=== PATIENT | male | born 1945 | race Caucasian/White ===

== ENCOUNTER 2018-03-30 12:42 | Observation (INO) | payer OTHER ==
[~2018-03-30] VITALS: Ht 185.4 cm; Wt 94.4 kg
[2018-03-30] MEDS ORDERED: SODIUM CHLORIDE FLUSH 10ML SYR IVF ONE (13:30)
[2018-03-30 13:37] LABS: BASOPHILS # (AUTO) 0.02 x10^3/uL (0-0.1); BASOPHILS % (AUTO) 0 % (0-1); EOSINOPHILS # (AUTO) 0.25 x10^3/uL (0-0.4); EOSINOPHILS % (AUTO) 3 % (1-7); LYMPHOCYTES # (AUTO) 1.31 x10^3/uL (1-3.4); LYMPHOCYTES % (AUTO) 14 % (22-44); MD NO; MEAN CORPUSCULAR HEMOGLOBIN 30.7 pg (27.5-34.5); MEAN CORPUSCULAR HGB CONC 33.9 g/dL (33.2-36.2); MEAN CORPUSCULAR VOLUME 90.5 fL (81-97); MONOCYTES # (AUTO) 0.49 x10^3/uL (0.2-0.8); MONOCYTES % (AUTO) 5 % (2-9); NEUTROPHILS # (AUTO) 7.62 x10^3/uL (1.8-6.8); NEUTROPHILS % (AUTO) 79 % (42-75); PLATELET COUNT 195 x10^3/uL (130-400); RED CELL DISTRIBUTION WIDTH 13.3 % (9.4-14.8)
[2018-03-30 13:46] LABS: ALANINE AMINOTRANSFERASE 34 U/L (12-78); ALBUMIN 3.8 g/dL (3.4-5.0); ANION GAP 7 mmol/L (5-15); CALCIUM 8.4 mg/dL (8.5-10.1); CHLORIDE 106 mmol/L (98-107); CREATININE 1.12 mg/dL (0.7-1.3); INTERNATIONAL NORMALIZED RATIO 0.99 (0.93-1.1); PROTHROMBIN TIME 10.3 Seconds (9.6-11.5)
[2018-03-30 13:50] LABS: ALKALINE PHOSPHATASE 94 U/L (45-117); TOTAL PROTEIN 7.2 g/dL (6.4-8.2); TROPONIN I < 0.015 ng/mL (0.000-0.045)
[2018-03-30] MEDS ORDERED: ASPIRIN 81 MG TABLET CHEW ONE (15:18)
[2018-03-30] MEDS ORDERED: ASPIRIN 81 MG TABLET CHEW PO ONE (15:30)
[2018-03-30] MEDS ORDERED: SODIUM CHLORIDE FLUSH 10ML SYR IVF PRN (16:00)
[2018-03-30] MEDS ORDERED: ACETAMINOPHEN 325 MG TABLET PO PRN (16:30)
[2018-03-30] MEDS ORDERED: ASA/APAP/ CAFFEINE TABLET PO PRN (16:30)
[2018-03-30] MEDS ORDERED: DOCUSATE 100 MG CAPSULE PO PRN (16:30)
[2018-03-30] MEDS ORDERED: DIAZEPAM 5 MG TABLET PO PRN (16:30)
[2018-03-30] MEDS ORDERED: LISINOPRIL 20 MG TABLET PO ONE (16:30)
[2018-03-30] MEDS ORDERED: LABETALOL 5MG/ML, 20ML IVPush PRN (16:30)
[2018-03-30] MEDS ORDERED: ONDANSETRON ODT 4 MG PO PRN (16:30)
[2018-03-30] MEDS ORDERED: ENALAPRILAT 1.25 MG/ML, 2ML IVPush PRN (16:30)
[2018-03-30] MEDS ORDERED: BISACODYL 10 MG SUPP PR PRN (16:30)
[2018-03-30] MEDS ORDERED: ONDANSETRON 2MG/ML, 2ML IVPush PRN (16:30)
[2018-03-30] MEDS ORDERED: DIAZEPAM 5 MG/ML, 2ML IV ONE (16:35)
[2018-03-30] MEDS ORDERED: LORazepam 2 MG/ML, 1ML IVPush PRN (17:00)
[2018-03-30] MEDS ORDERED: PLEASE ENTER WEIGHT MC SCH (17:30)
[2018-03-30] MEDS ORDERED: GADOBUTROL 10 MMOL/10 ML PFS ONE (17:45)
[2018-03-30] MEDS ORDERED: AMLO10TA2 PO (18:04)
[2018-03-30] MEDS ORDERED: LISI40TA PO (18:04)
[2018-03-30] MEDS ORDERED: VITA1CAP PO (18:04)
[2018-03-30] MEDS ORDERED: CHOL500045 PO (18:04)
[2018-03-30] MEDS ORDERED: MULT-257 PO (18:04)
[2018-03-30 18:14] VITALS: BP 142/80
[2018-03-30] MEDS ORDERED: PLEASE ENTER HEIGHT AND WEIGHT MC SCH (18:30)
[2018-03-30 20:16] VITALS: BP 133/66
[2018-03-30 20:36] LABS: MICROSCOPIC NOT IND
[2018-03-30 20:41] LABS: CULTURE INDICATED? NO
[2018-03-31 01:16] VITALS: BP 117/69
[2018-03-31 06:47] LABS: BASOPHILS # (AUTO) 0.03 x10^3/uL (0-0.1); BASOPHILS % (AUTO) 0 % (0-1); EOSINOPHILS # (AUTO) 0.37 x10^3/uL (0-0.4); EOSINOPHILS % (AUTO) 5 % (1-7); LYMPHOCYTES # (AUTO) 1.69 x10^3/uL (1-3.4); LYMPHOCYTES % (AUTO) 23 % (22-44); MD NO; MEAN CORPUSCULAR HEMOGLOBIN 30.3 pg (27.5-34.5); MEAN CORPUSCULAR HGB CONC 33.3 g/dL (33.2-36.2); MEAN CORPUSCULAR VOLUME 90.9 fL (81-97); MEAN PLATELET VOLUME 9.4 fL (7.4-10.4); MONOCYTES # (AUTO) 0.38 x10^3/uL (0.2-0.8); MONOCYTES % (AUTO) 5 % (2-9); NEUTROPHILS % (AUTO) 67 % (42-75); PLATELET COUNT 202 x10^3/uL (130-400); RED BLOOD COUNT 5.57 x10^6/uL (4.38-5.82); RED CELL DISTRIBUTION WIDTH 13.2 % (9.4-14.8)
[2018-03-31 06:57] LABS: ALBUMIN 3.5 g/dL (3.4-5.0); CALCIUM 8.1 mg/dL (8.5-10.1); CHLORIDE 106 mmol/L (98-107)
[2018-03-31 07:08] LABS: ALANINE AMINOTRANSFERASE 30 U/L (12-78); ALKALINE PHOSPHATASE 88 U/L (45-117); ANION GAP 5 mmol/L (5-15); CHOL/HDL RATIO 3.6; CHOLESTEROL, TOTAL 160 mg/dL (140-239); CREATININE 1.11 mg/dL (0.7-1.3); HDL CHOL % 28 % (26-37); HDL CHOLESTEROL (DIRECT) 45 mg/dL (40-60); LDL CHOLESTEROL,CALCULATED 93 mg/dL (54-169); LDL/HDL RATIO 2.1 (0.5-3.0); THYROID STIMULATING HORMONE 0.456 mIU/L (0.358-3.740); TOTAL PROTEIN 6.8 g/dL (6.4-8.2); TRIGLYCERIDES 110 mg/dL (50-200); VLDL CHOLESTEROL 22 mg/dL (0-25)
[2018-03-31 07:37] VITALS: BP 137/84
[2018-03-31] MEDS ORDERED: SENNA/DOCUSATE TABLET PO SCH (09:00)
[2018-03-31] MEDS ORDERED: AMLODIPINE 5 MG TABLET PO ONE (09:00)
[2018-03-31 14:14] VITALS: BP 132/79
[2018-03-31] MEDS ORDERED: LISI-167 PO (16:00)
== END 2018-03-31 17:34 | disposition home or self-care (01) ==
LOC: ED 14:29 → EDIP 15:41 → INTOOBSV 15:41 → 4EST 16:56
PROVIDERS: ADMIT Hospitalist; ATTEND Hospitalist
DX: G45.9 Transient cerebral ischemic attack, unspecified (principal); I10 Essential (primary) hypertension; R73.9 Hyperglycemia, unspecified; R42 Dizziness and giddiness; D32.9 Benign neoplasm of meninges, unspecified; Z79.82 Long term (current) use of aspirin; Z80.42 Family history of malignant neoplasm of prostate; Z85.828 Personal history of other malignant neoplasm of skin; Z86.73 Personal history of transient ischemic attack (TIA), and cerebral infarction without residual deficits; Z87.891 Personal history of nicotine dependence
CPT/HCPCS: 36415; 70450; 70553; 71045; 80053; 80061; 81003; 83036; 83735; 84100; 84443; 84484; 85025; 85610; 85730; 93005; 93306; 93880; 96374; 99285; A9585; G0378; J3360

== ENCOUNTER 2018-08-22 09:00 | Day surgery (SDC) | payer OTHER ==
[~2018-08-22 09:00] MED LIST: AMLO10TA8 PO; CHOL500045 PO; LISI-167 PO; LISI40TA PO; MULT-257 PO; VITA1CAP PO
[2018-08-22] MEDS ORDERED: SODIUM CHLORIDE 0.9% 1,000 ML IV SCH (10:28)
[2018-08-22] MEDS ORDERED: LIDOCAINE 1%, 20ML ONE (10:41)
[2018-08-22] MEDS ORDERED: PLEASE ENTER HEIGHT AND WEIGHT MC SCH (11:00)
[2018-08-23] MEDS ORDERED: AMLODIPINE 10 MG TAB PO SCH (09:00)
[2018-08-23] MEDS ORDERED: LISINOPRIL 10 MG TABLET PO SCH (09:00)
[2018-08-23] MEDS ORDERED: CHOLECALCIFEROL 5,000u TAB PO SCH (09:00)
[2018-08-23] MEDS ORDERED: MULTIVITAMIN PO SCH (09:00)
[2018-08-23] MEDS ORDERED: TEMPLATE NON-FORMULARY MED. (Vitamin B Complex** 1 TAB) PO SCH (09:00)
== END 2018-08-22 11:24 | disposition home or self-care (01) ==
LOC: CACL 09:00
PROVIDERS: ATTEND Internal Medicine Cardiovascular Disease
DX: Z45.09 Encounter for adjustment and management of other cardiac device (principal); I63.9 Cerebral infarction, unspecified; I10 Essential (primary) hypertension; Z87.891 Personal history of nicotine dependence; Z72.89 Other problems related to lifestyle; Z79.899 Other long term (current) drug therapy
CPT/HCPCS: 33285; J3490; 33282; C1764

== ENCOUNTER 2019-09-15 09:21 | Emergency (ER) | payer OTHER ==
[~2019-09-15] VITALS: Ht 180.3 cm; Wt 90.0 kg
--- NOTE | 2019-09-15 09:36 | NUR ---
patient arrives to er with a 1.5" nail in his left thumb. cleeding controlled. he is calm. last tetnis shot was 20+ years ago
[2019-09-15] MEDS ORDERED: BUPIVACAINE 0.25% ONE (09:41)
[2019-09-15] MEDS ORDERED: LIDOCAINE-MPF 1%, 5ML ONE (09:41)
[2019-09-15] MEDS ORDERED: DIPH,PERTUSS(ACELL),TET VAC/PF 0.5 ML IM-VACC ONE ×2 (09:43→10:00)
[2019-09-15] MEDS ORDERED: LIDOCAINE-MPF 1%, 5ML INFIL ONE (10:00)
[2019-09-15] MEDS ORDERED: BUPIVACAINE/PF 0.25% INFIL ONE (10:00)
[2019-09-15] MEDS ORDERED: CEPHALEXIN 500 MG CAPSULE ONE (10:08)
--- NOTE | 2019-09-15 10:27 | NUR ---
irragated finger wound entrance and exit throughly with betadine and ns. no complications. 1,000 ml fluid irragated over finger.
[2019-09-15] MEDS ORDERED: CEPHALEXIN 500 MG CAPSULE PO ONE (10:30)
[2019-09-15 10:39] VITALS: BP 135/87
--- NOTE | 2019-09-15 10:39 | NUR ---
PATIENT FINGER DRESSED WITH GAUZE AND KERLEX. DC REVIEWED
== END 2019-09-15 10:53 | disposition home or self-care (01) ==
LOC: ED 10:47
DX: S61.142A Puncture wound with foreign body of left thumb with damage to nail, initial encounter (principal); I10 Essential (primary) hypertension; X58.XXXA Exposure to other specified factors, initial encounter; Y93.89 Activity, other specified; Y92.009 Unspecified place in unspecified non-institutional (private) residence as the place of occurrence of the external cause; Y99.8 Other external cause status
CPT/HCPCS: 90471; 90715